=== PATIENT | female | born 2000 | race Caucasian/White ===

== ENCOUNTER 2023-07-15 03:17 | Inpatient (IN) ==
[2023-07-15] MEDS ORDERED: OXYTOCIN 30 UNITS/NSS 30 UNITS/500 ML BAG IV PRN ×3 (04:09→13:13)
[2023-07-15] MEDS ORDERED: LIDOCAINE 1% LOCAL 20 ML VIAL INFIL PRN (04:09)
[2023-07-15] MEDS: BUTORPHANOL TARTRATE 1 MG/ML VIAL IV PRN ×2 (04:43→07:14)
[2023-07-15 04:48] LABS: Hematocrit (blood only) 36.3 % (37.0-47.0); Hemoglobin 11.9 g/dl (12.0-16.0); Mean Corpuscular Hemoglobin 26.9 pg (25.0-34.0); Mean Corpuscular Hgb Conc 32.8 g/dL (32.0-36.0); Mean Corpuscular Volume 81.9 fL (80.0-100.0); Mean Platelet Volume 9.5 fL (9.4-12.4); Platelet Count 305 K/uL (130-400); RDW Coefficient of Variation 14.6 % (11.5-14.5); RDW Standard Deviation 43.1 fL (36.4-46.3); Red Blood Count 4.43 M/uL (4.20-5.40); White Blood Count 16.69 K/ul (4.8-10.8)
[2023-07-15] MEDS ORDERED: ONDANSETRON INJ 2 MG/ML 2 ML VIAL IV PRN (07:07)
[2023-07-15] MEDS ORDERED: SODIUM CHLORIDE 0.9% PF INJ 10 ML VIAL ONE (07:20)
[2023-07-15] MEDS ORDERED: fentaNYL citrate PF 100 MCG/2 ML VIAL ONE (07:20)
[2023-07-15] MEDS ORDERED: ePHEDrine sulfate 50 MG/ML AMP ONE (07:20)
[2023-07-15] MEDS ORDERED: BUPIVACAINE 0.25% PF 30 ML VIAL ONE (07:21)
[2023-07-15] MEDS ORDERED: LIDOCAINE 2%/EPINEPHRINE 1:200,000 20 ML PF ONE (07:21)
[2023-07-15] MEDS ORDERED: fentANYL 2 MCG/ML BUPIVacaine 0.125%-NSS 100ML BAG ONE (07:21)
[2023-07-15] MEDS: LACTATED RINGER'S 1,000 ML IV PRN ×2 (07:25→08:35)
[2023-07-15] MEDS ORDERED: ePHEDrine sulfate 50 MG/ML AMP IV PRN (07:34)
[2023-07-15] MEDS ORDERED: BUPIVACAINE 0.25% PF 30 ML VIAL EPI STA (07:34)
[2023-07-15] MEDS ORDERED: BUPIVACAINE 0.25% PF 30 ML VIAL EPI PRN (07:34)
[2023-07-15] MEDS ORDERED: NALOXONE HCL 1 MG in SODIUM CHLORIDE 0.9% 1,000 ML IV PRN (07:34)
[2023-07-15] MEDS ORDERED: ROPIVACAINE 0.5% PF 5 MG/ML 20 ML VIAL EPI PRN (07:34)
[2023-07-15] MEDS ORDERED: fentaNYL citrate PF 100 MCG/2 ML VIAL EPI STA (07:34)
[2023-07-15] MEDS ORDERED: diphenhydrAMINE 50 MG/ML VIAL IV PRN (07:34)
[2023-07-15] MEDS ORDERED: fentANYL 2 MCG/ML BUPIVacaine 0.125%-NSS 100ML BAG EPI PRN (07:34)
[2023-07-15] MEDS ORDERED: SODIUM CHLORIDE 0.9% PF INJ 10 ML VIAL EPI PRN (07:34)
[2023-07-15] MEDS ORDERED: SODIUM CHLORIDE 0.9% PF INJ 10 ML VIAL EPI STA (07:34)
[2023-07-15] MEDS ORDERED: NALBUPHINE HCL 5 MG in SYRINGE 0 ML IV PRN (07:34)
[2023-07-15] MEDS ORDERED: NALOXONE HCL 0.4 MG/1 ML VIAL/CARP IV PRN (07:34)
[2023-07-15] MEDS ORDERED: LIDOCAINE 2%/EPINEPHRINE 1:200,000 20 ML PF EPI STA (07:34)
[2023-07-15] MEDS ORDERED: LIDOCAINE 2% MPF LOCAL 5 ML VIAL EPI PRN (07:34)
[2023-07-15] MEDS ORDERED: fentaNYL citrate PF 100 MCG/2 ML VIAL EPI PRN (07:34)
--- NOTE | 2023-07-15 07:36 | Anesthesiology Consultation ---
Date of Service July 15, 2023 Assessment & Plan Chart Review Chart Review: Acceptable Risk for Labor Epidural Consults Requested none History Height/Weight Height: 5 ft 4 in Weight: 76.204 kg Allergies Allergy/AdvReac Type Severity Reaction Status Date / Time No Known Drug Allergies Allergy Unknown Unverified 07/15/23 05:33 POLLEN Allergy Intermediate ITCHY Uncoded 07/15/23 05:33 EYES, SNEEZING, CONGESTION Medications Home Medications Medication Instructions Recorded Confirmed Last Taken vits no.124-ferrous fum 1 tab PO DAILY 07/15/23 07/15/23 07/14/23 27 mg iron-folic acid 800 mcg tablet ( Vitamin) Active Medications Generic Name Dose Route Start Last Admin Trade Name Freq PRN Reason Stop Dose Admin Butorphanol Tartrate 1 mg 07/15/23 04:11 07/15/23 07:14 Butorphanol Tartrate 1 Mg/Ml Vial IV 08/14/23 04:10 1 mg Q2H PRN Administration Pain Past Medical History Medical History (Updated 07/15/23 @ 04:12 by Corrie Borden RN) Anxiety Peritonsillar abscess Upper respiratory infection, viral Allergic rhinitis Past Family History Family History Father No problems noted. Mother No problems noted. Family/Other Allergies Other No family history of adverse response to anesthesia No family history of bleeding disorder Past Surgical History Surgical History (Updated 07/15/23 @ 03:37 by Corrie Borden RN) History of incision and drainage peritonsillar abscess-06/2020 History of incision and drainage peritonsillar abscess-06/2020 Social History Smoking Status: Never smoker Hx Alcohol Use: No Hx Substance Use: Yes substance use type: marijuana Last Used Substance: Just Prior to Arrival Last Used Substance Other:: medical marijuana for anxiety Physical Exam Vital Signs Last Vital Signs Temp 36.7 C 07/15/23 03:34 Pulse 79 07/15/23 07:30 Resp 18 07/15/23 03:34 BP 133/87 07/15/23 03:34 Pulse Ox 98 07/15/23 07:30 Testing Laboratory Results 07/15/23 04:34
[2023-07-15] MEDS ORDERED: METHYLERGONOVINE MALEATE 0.2 MG/ML AMP ONE (12:40)
[2023-07-15] MEDS ORDERED: oxyCODONE/ACETAMINOPHEN 5mg/325mg TAB PO PRN (13:13)
[2023-07-15] MEDS ORDERED: bisacodyL 10 MG SUPP PR PRN (13:13)
[2023-07-15] MEDS ORDERED: BENZOCAINE 20% SPRY 85 APPLN/85 GM CAN EXT PRN (13:13)
[2023-07-15] MEDS ORDERED: ACETAMINOPHEN 325 MG TAB PO PRN (13:13)
[2023-07-15] MEDS ORDERED: ACETAMINOPHEN W/CODEINE #3 1 TAB PO PRN (13:13)
[2023-07-15] MEDS ORDERED: METHYLERGONOVINE MALEATE 0.2 MG/ML AMP IM ONE (13:13)
[2023-07-15] MEDS ORDERED: DIPHTHERIA/TETANUS/PERTUSSIS Vaccine (Tdap, Age 7+yrs) 0.5mL SYR/VL IM ONE (13:13)
[2023-07-15] MEDS ORDERED: HYDROCORTISONE ACETATE 25 MG SUPP PR PRN (13:13)
--- NOTE | 2023-07-15 13:20 | Delivery Summary ---
Vaginal Delivery Summary Date of Service July 15, 2023 Vaginal Delivery Summary Patient is a 23-year-old 1 para 1 followed in our office for care and delivery. Well dated with a first trimester ultrasound. She was admitted in active labor at 39 weeks and 1 day gestation. At about 6 to 7 cm of cervical dilatation membranes were ruptured. Fluid was clear. Patient received epidural for pain control. And then contractions were augmented with IV Pitocin. Patient went to full dilatation pushed out a live via direct occiput anterior over an intact perineum. There was a nuchal cord x 1. was delivered with a nuchal cord intact. The cord was allowed to pulse for 60 seconds. Cord was then cut by the father and the infant was transferred to the mother's abdomen with IV Pitocin running the placenta was removed intact. Hemostasis was good. Inspection of the perineum revealed a first-degree laceration in the perineum at 6:00. Vaginal mucosa was approximated with a continuous running suture of 0 Vicryl. A deep suture was used to approximate the bulbocavernosus muscle. Second deep suture was used to approximate the perineal body. Perineal skin was approximated with a running subcuticular suture.
--- NOTE | 2023-07-15 14:42 | Anesthesia Procedure Note ---
Date of Service July 15, 2023 Anesthesia Post Epidural Note Vital Signs Vital Signs: Temp Pulse Resp BP Pulse Ox 37.2 C 76 19 118/67 89 L 07/15/23 11:58 07/15/23 14:36 07/15/23 09:24 07/15/23 14:36 07/15/23 12:35 Notes Mental Status: alert / awake / arousable and participated in evaluation Nausea / Vomiting: adequately controlled Pain: adequately controlled Airway Patency, RR, SpO2: stable & adequate BP & HR: stable & adequate Hydration State: stable & adequate Neuraxial Anesthesia: was administered and sensory block is resolving Anesthetic Complications: no major complications apparent and Pt Satisfied with anesthetic care Epidural: Removed without complications and With tip intact
[2023-07-15] MEDS: IBUPROFEN 600 MG TAB PO PRN ×2 (17:22→21:52)
[2023-07-15] MEDS: DOCUSATE SODIUM 100 MG CAP PO SCH (21:52)
[2023-07-16] MEDS: IBUPROFEN 600 MG TAB PO PRN (04:27)
--- NOTE | 2023-07-16 06:57 | Obstetrical Progress Note ---
Date of Service July 16, 2023 Assessment & Plan Admission and Anticipated Discharge Date Admission Date: July 15, 2023 Subjective abdomen soft and non tender no calf tenderness ambulating well vaginal bleeding scant hgb 11.9 Results & Data Vital Signs (Past 12 Hours) Vital Signs Temp Pulse Resp BP Pulse Ox O2 Del Method 07/16/23 04:20 36.7 C 65 18 127/68 98 Room Air 07/16/23 00:10 36.9 C 70 18 111/70 96 Room Air 07/15/23 19:16 37.4 C 78 18 118/76 98 Room Air
[2023-07-16 07:13] LABS: Hematocrit (blood only) 30.2 % (37.0-47.0); Hemoglobin 10.2 g/dl (12.0-16.0); Mean Corpuscular Hemoglobin 27.6 pg (25.0-34.0); Mean Corpuscular Hgb Conc 33.8 g/dL (32.0-36.0); Mean Corpuscular Volume 81.8 fL (80.0-100.0); Mean Platelet Volume 9.6 fL (9.4-12.4); Platelet Count 228 K/uL (130-400); RDW Standard Deviation 44.3 fL (36.4-46.3); Red Blood Count 3.69 M/uL (4.20-5.40); White Blood Count 16.43 K/ul (4.8-10.8)
[2023-07-16] MEDS: DOCUSATE SODIUM 100 MG CAP PO SCH (07:49)
[2023-07-16] MEDS ORDERED: PRENATAL VITAMIN 1 TAB PO SCH (08:00)
[2023-07-16] MEDS ORDERED: bisacodyL 5 MG TABEC PO SCH (20:00)
== END 2023-07-16 18:02 | disposition home or self-care (01) | DRG 807 ==
LOC: OPB 03:17 → 4S1 03:19 → 4E2 16:39